=== PATIENT | male | born 1955 | race Caucasian/White ===

== ENCOUNTER → 2021-01-06 | Outpatient (CLI) | payer OTHER ==
[~2021-01-06] MED LIST: LEXAPRO20 MG PO; TOPROL XL100 MG PO; TOPROL XL50 MG PO
== END ==
LOC: LAB 08:49
PROVIDERS: ATTEND Neuromusculoskeletal Medicine & OMM
DX: R05 Cough (principal); M79.10 Myalgia, unspecified site; R53.83 Other fatigue; Z20.822 Contact with and (suspected) exposure to COVID-19

== ENCOUNTER 2021-01-07 12:59 | Inpatient (IN) | payer OTHER ==
[~2021-01-07] VITALS: Ht 188 cm; Wt 119.0 kg
[2021-01-07] VITALS (15 sets, daily range): BP systolic 88–155; BP diastolic 68–112
--- NOTE | ~2021-01-07 | HC ---
[facility] [place] [address] CONSULTATION Name: TIFFANY MONSON Room #: 246-P [facility] IN M.R.#: [id number] Admission: 01/07/21 Attend Phys: Jeremías Felix MD Discharge: Date of : 59 Report #: [id number] THIS REPORT FOR: cc: Jules Mckinney,Harjinder Sam MD ~ DATE OF SERVICE: 01/08/2021 CARDIOLOGY CONSULTATION REASON FOR CONSULTATION: Pulmonary embolus. HISTORY OF PRESENT ILLNESS: The patient is a 65-year-old who presents with worsening shortness of breath, chest pains and he noticed some decreased sats at home as well. Came to the Emergency Room and was found to have a submassive pulmonary embolus involving the right pulmonary artery. He was admitted and started on a heparin drip. He was seen by Interventional Cardiology and given his stability, no invasive treatments for his pulmonary embolus were required. Currently, the patient denies any chest pain. The patient reports that his shortness of breath is unchanged. He denies any PND or orthopnea. He denies presyncope or syncope. He does report that he has had some fevers and chills and was checked for COVID as an outpatient recently, but did not have the results back. His COVID test here in the hospital was negative. REVIEW OF SYSTEMS: A 12-point review of systems was performed and is negative other mentioned above. PAST MEDICAL HISTORY: SVT, depression. PAST SURGICAL HISTORY: Noncontributory. SOCIAL HISTORY: Does not smoke. MEDICATIONS: Metoprolol, Lexapro at home. PHYSICAL EXAMINATION: GENERAL: He is in no acute distress. HEENT: Oropharynx is clear. NECK: Supple, with no thyromegaly. CARDIOVASCULAR: Heart is regular rate and rhythm with no murmurs, rubs or gallops. CHEST: Lungs are clear to auscultation bilaterally. ABDOMEN: Soft, nontender, nondistended. EXTREMITIES: There is no clubbing, cyanosis or edema. NEUROLOGIC: Cranial nerves 2-12 are intact. [facility] [address] [place] [address] CONSULTATION Name: TIFFANY MONSON Room #: 246-P [facility] IN ..#: [id number] Admission: 01/07/21 Attend Phys: Jeremías Felix MD Discharge: Date of : 59 Report #: [id number] PSYCHIATRIC: He is appropriate. VITAL SIGNS: Temperature is 37.2, pulse 94, respirations 21, blood pressure 169/100, sats 94%. LABORATORY DATA: White count 6, hemoglobin 13, platelets 156. Chemistry: Sodium 137, potassium 4, creatinine 1.1. His initial troponin was negative. His proBNP is 718. COVID PCR is negative. CT scan was visualized. Chest x-ray shows an infiltrate in the right lung, likely related to his pulmonary embolus. EKG shows sinus tachycardia with no ischemic changes, and no RV strain pattern. An echocardiogram performed today shows an EF of 50-55%. There is some increased RV size, some mild decreased RV function. He has PA pressures in the 40s. His IVC appears to be collapsing. ASSESSMENT: Pulmonary embolus. PLAN: At this time, the patient appears to be hemodynamically stable with his pulmonary embolus. There appears to be mild RV enlargement and mild decreased RV function. PA pressures are in the 40s. At this time, recommend continuing with IV heparin and closely monitoring in the ICU hemodynamics sats. We will continue to follow. By: [id number] Harjinder Steve MD /nt
[2021-01-07 14:04] LABS: ABSOLUTE NEUTROPHILS 4.6 thou/uL (1.4-8.2); BASOPHILS 0.4 % (0.0-2.0); EOSINOPHILS 0.3 % (0.0-3.0); HEMATOCRIT 41.8 % (42.0-52.0); HEMOGLOBIN 14.2 gm/dL (14.0-18.0); LYMPHOCYTES 23.1 % (24.0-44.0); MCH 32.3 pg (26.0-34.0); MCV 95.1 fL (80.0-100.0); PLATELET COUNT 165 thou/uL (150-400); POLYS 65.2 % (36.0-66.0); RDW 12.2 % (10.5-14.5)
[2021-01-07 14:09] LABS: CALCIUM 8.7 mg/dL (8.5-10.1); CREATININE 1.1 mg/dL (0.7-1.3); POTASSIUM 4.3 mmol/L (3.5-5.1)
[2021-01-07 14:10] LABS: URINE BILIRUBIN NEGATIVE (Negative); URINE BLOOD NEGATIVE (Negative); URINE CLARITY CLEAR; URINE COLOR YELLOW; URINE GLUCOSE-RANDOM* NEGATIVE (Negative); URINE KETONES NEGATIVE (Negative); URINE LEUKOCYTES-REFLEX NEGATIVE (Negative); URINE NITRITE-REFLEX NEGATIVE (Negative); URINE PROTEIN (DIPSTICK) TRACE (Negative)
[2021-01-07 14:17] LABS: ALBUMIN 3.4 g/dL (3.4-5.0); TOTAL BILIRUBIN 0.6 mg/dL (0.2-1.0); TOTAL PROTEIN 7.5 g/dL (6.4-8.2)
[2021-01-07 14:29] LABS: APTT 27.4 Seconds (24.5-32.8); INR 1.1; PROTIME 11.6 Seconds (9.3-11.4)
[2021-01-07 14:30] LABS: D-DIMER 12.24 ug/mLFEU (0.19-0.50)
--- NOTE | 2021-01-07 18:33 | NUR ---
PT ARRIVED TO ICU AT 1755 ACCOMPANIED BY ED UTILITY LOCATE TECHNICIAN NIEKA. PT ALERT AND ORIENTED X4. PT ONLY C/O PAIN WITH DEEP INSPIRATION. PT ABLE TO TRANSFER SELF. PT WAS SETTLED IN BED. INITIAL VITAL SIGNS OBTAINED. PT SETTLED INTO BED AND ROOM ORIENTATION GIVEN. WILL CONTINUE TO MONITOR.
--- NOTE | 2021-01-07 22:11 | NUR ---
ASSESSMENT: PT ARRIVED FROM HOME TO THE UNIT AT APPROXIMATELY 1730. PT REMAIN ALERT AND ORIENT TIMES FOUR. SOLORZANO. CURRENTLY IS ON BEDREST R/T PE AND HEPARIN GTT INFUSING. C/O RIGHT UPPER BACK PAIN WITH INSPIRED DEEP BREATHS. ABLE TO REPOSITION SELF IN BED. LOW GRADE TEMP NOTED. DR. MONDRAGON AT THE BEDSIDE AT 2200 TO INFORM PT THAT THE PLAN FOR THOROCOTOMY HAS BEEN DISMISSED. PENDING PCR R/O COVID. PT'S BROTHER KEELY CALLED TO CHECK ON THE STATUS OF THE PT. PT SLIGHTLY RESTLESS BUT STATE THAT HE DOESN'T TAKE ANY THING FOR SLEEPING AND THAT HE LIKES LISTENING TO THE "WHITE NOISE". CURRENTLY, ST PER MONITOR. HR 111. WILL CONTINUE TO MONITOR.
[2021-01-08] VITALS (24 sets, daily range): BP systolic 109–176; BP diastolic 69–127
[2021-01-08 01:58] LABS: HEMATOCRIT 40.6 % (42.0-52.0); HEMOGLOBIN 13.6 gm/dL (14.0-18.0); MCH 31.7 pg (26.0-34.0); MCHC 33.5 g/dL (28.0-37.0); MCV 94.6 fL (80.0-100.0); RBC 4.29 mil/uL (4.50-6.00); RDW 11.7 % (10.5-14.5); WBC 6.6 thou/uL (4.0-11.0)
[2021-01-08 02:20] LABS: CALCIUM 8.1 mg/dL (8.5-10.1); CREATININE 1.1 mg/dL (0.7-1.3); MAGNESIUM 2.1 mg/dL (1.8-2.4)
--- NOTE | 2021-01-08 04:25 | NUR ---
LAB: PCR WAS NEGATIVE, PT OUT OF ISOLATION PER DR. FAIRBANKS.
--- NOTE | 2021-01-08 10:42 | 2DMMODE ---
[facility] [place] [address] 2 D/M-MODE ECHOCARDIOGRAM Name: TIFFANY MONSON Room #: 246-P ADM IN M.R.#: [id number] Admission: 01/07/21 Attend Phys: Jeremías Felix MD Discharge: Date of : 59 Report #: [id number] THIS REPORT FOR: cc: Jules Mckinney Steven F. DO Couchonnal, Luis F. MD ~ APPROVED REPORT Study performed: 01/08/2021 08:20:38 EXAM: Comprehensive 2D, Doppler, and color-flow Echocardiogram Patient Location: In-Patient Room #: 246 Status: stat BSA: 2.39 HR: 95 bpm Rhythm: NSR Indications Pulmonary Embolism Dyspnea 2D Dimensions RVDd: 33.67 mm IVSd: 11.86 (7-11mm) LVOT Diam: 27.39 (18-24mm) LVDd: 44.91 mm PWd: 10.24 (7-11mm) Ascending Ao: 34.64 (22-36mm) LVDs: 29.70 (25-40mm) Left Atrium: 32.97 (27-40mm) Aortic Root: 33.00 mm Volumes Left Atrial Volume (Systole) Single Plane 4CH: 25.19 mL Single Plane 2CH: 30.94 mL Aortic Valve AoV Peak Mikel.: 0.89 m/s AO Peak Gr.: 3.18 mmHg AO Mean Gr.: 1.64 mmHg AO V2 Mean: 0.59 m/s AO V2 VTI: 17.67 cm Mitral Valve [facility] [address] [place] [address] 2 D/M-MODE ECHOCARDIOGRAM Name: TIFFANY MONSON Room #: 246-P [facility] IN ..#: [id number] Admission: 01/07/21 Attend Phys: Jeremías Felix, Discharge: Date of : 59 Report #: [id number] MV E Max Mikel.: 0.45 m/s Pulmonary Valve PV Peak Mikel.: 0.80 m/s PV Peak Gr.: 2.53 mmHg Tricuspid Valve TR Peak Mikel.: 3.07 m/s TR Peak Gr.: 37.74 mmHg Left Ventricle The left ventricle is normal size. Borderline concentric left ventricular hypertrophy. The left ventricular systolic function is normal. The left ventricular ejection fraction is within the normal range. LVEF is 50-55%. Grade I - abnormal relaxation pattern. Right Ventricle Right ventricle is at the upper limits of normal. Right ventricular systolic function is mildly reduced. Atria The left atrium size is normal. The right atrium size is normal. Aortic Valve The aortic valve is normal in structure. No aortic regurgitation is present. There is no aortic valvular stenosis. Mitral Valve The mitral valve is normal in structure. There is no mitral valve regurgitation noted. Tricuspid Valve The tricuspid valve is normal in structure. Trace tricuspid regurgitation. Estimated PAP 40 mmHg. Pulmonic Valve The pulmonary valve is normal in structure. There is no pulmonic valvular regurgitation. Trace pulmonic regurgitation. Great Vessels The aortic root is normal in size. IVC is normal in size and collapses >50% with inspiration. Pericardium There is no pericardial effusion. [facility] [address] [place] [address] 2 D/M-MODE ECHOCARDIOGRAM Name: TIFFANY MONSON Room #: 246-P [facility] IN [facility].#: [id number] Admission: 01/07/21 Attend Phys: Jeremías Felix, Discharge: Date of : 59 Report #: [id number] <Conclusion> The left ventricle is normal size. Borderline concentric left ventricular hypertrophy. The left ventricular systolic function is normal. The left ventricular ejection fraction is within the normal range. LVEF is 50-55%. Right ventricle is at the upper limits of normal. Right ventricular systolic function is mildly reduced. The aortic valve is normal in structure. No aortic regurgitation is present. There is no aortic valvular stenosis. The mitral valve is normal in structure. There is no mitral valve regurgitation noted. The tricuspid valve is normal in structure. Trace tricuspid regurgitation. Estimated PAP 40 mmHg. IVC is normal in size and collapses >50% with inspiration. There is no pericardial effusion. <ELECTRONICALLY SIGNED> By: Harjinder Steve MD 01/08/211041 41 41 Harjinder Steve MD /INF
--- NOTE | 2021-01-08 18:27 | NUR ---
HEPARIN DRIP RUNNING AT 17U/KG/HOUR OR 19CC/HR. THERAPUTIC APTT OF 52.7 AT 1700. RECHECK IN AM. REQUIRES 2-3.5 L02 WHEN SLEEPING. SOME SOB WITH ACTIVITY.
[2021-01-09] VITALS (24 sets, daily range): BP systolic 112–154; BP diastolic 64–95
[2021-01-09 04:42] LABS: CALCIUM 8.6 mg/dL (8.5-10.1); MAGNESIUM 2.3 mg/dL (1.8-2.4); POTASSIUM 3.9 mmol/L (3.5-5.1)
[2021-01-09 05:08] LABS: HEMATOCRIT 39.7 % (42.0-52.0); HEMOGLOBIN 13.6 gm/dL (14.0-18.0); MCH 32.4 pg (26.0-34.0); MCHC 34.3 g/dL (28.0-37.0); MCV 94.7 fL (80.0-100.0); RBC 4.19 mil/uL (4.50-6.00); RDW 12.2 % (10.5-14.5); WBC 5.1 thou/uL (4.0-11.0)
[2021-01-09 07:13] LABS: APTT 47.5 Seconds (24.5-32.8); INR 1.1; PROTIME 11.8 Seconds (9.3-11.4)
--- NOTE | 2021-01-09 11:43 | EKG ---
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
--- NOTE | 2021-01-09 12:24 | NUR ---
ALERT AND ORIENTED AND VITALS STABLE. C/O RIGHT CHEST PAIN AND PRN TYLENOL ADMINISTERED. ON HEPARIN GTT PER PE PROTOCOL. ASSESSMENT COMPLETED. NO OTHER COMPLAINTS AT THIS TIME. WILL CONTINUE WITH POC.
--- NOTE | 2021-01-09 15:14 | NUR ---
chart review. hiral visited with taryn via phone call. intro to cm, and [place]. ellen & o x 3. 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 i have [employer] insurance the [employer] program it is really good"/taryn. he live in house alone, independent. manage own medication, pcp is dr robert. uses cpap that he bought online through [employer]. 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
--- NOTE | 2021-01-09 16:51 | NUR ---
US RESULTS CALLED TO DR. SAMUEL, NO NEW ORDERS RECEIVED.
[2021-01-09 19:35] LABS: HEMATOCRIT 39.9 % (42.0-52.0); HEMOGLOBIN 13.5 gm/dL (14.0-18.0); MCH 32.2 pg (26.0-34.0); MCHC 33.9 g/dL (28.0-37.0); RBC 4.19 mil/uL (4.50-6.00); RDW 12.2 % (10.5-14.5); WBC 5.6 thou/uL (4.0-11.0)
[2021-01-10] VITALS (9 sets, daily range): BP systolic 113–137; BP diastolic 70–83
[2021-01-10 02:47] LABS: HEMATOCRIT 40.6 % (42.0-52.0); HEMOGLOBIN 13.6 gm/dL (14.0-18.0); MCH 31.9 pg (26.0-34.0); MCHC 33.6 g/dL (28.0-37.0); RBC 4.27 mil/uL (4.50-6.00); RDW 11.6 % (10.5-14.5); WBC 4.9 thou/uL (4.0-11.0)
[2021-01-10 03:03] LABS: CALCIUM 8.4 mg/dL (8.5-10.1); CREATININE 1.1 mg/dL (0.7-1.3); MAGNESIUM 2.2 mg/dL (1.8-2.4); POTASSIUM 3.8 mmol/L (3.5-5.1)
--- NOTE | 2021-01-10 14:10 | NUR ---
bathed self, brushed teeth while sitting on the edge of bed, well tolerated. report given to STEFANIE Harmon. 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 (pt transferred from icu to ccu.) pt sitting in chair on ccu arrival, lunch tray warmed and given to pt.
--- NOTE | 2021-01-10 16:38 | NUR ---
cm notified by cm team that out of net work with insurance, cm team found 2 hospital in area in network and [facility]. cm spoke with karin and let her know was faxing over face sheet and possible need transfer in am per hospitalist. will cont following as needed for dc needs.
--- NOTE | 2021-01-10 18:27 | NUR ---
END OF SHIFT NOTE. PT PROGRESSING TOWARDS GOALS. 2L NASAL CANNUAL. OOB IN CHAIR. VSS. HEPARIN GTT THERAPEUTIC. PAIN RELIEVED WITH TYLENOL. DRY COOUGH.
[2021-01-10 19:29] LABS: HEMATOCRIT 41.4 % (42.0-52.0); HEMOGLOBIN 13.5 gm/dL (14.0-18.0); MCH 31.9 pg (26.0-34.0); MCHC 32.6 g/dL (28.0-37.0); MCV 97.9 fL (80.0-100.0); RBC 4.23 mil/uL (4.50-6.00); RDW 12.5 % (10.5-14.5); WBC 4.9 thou/uL (4.0-11.0)
[2021-01-11 03:42] LABS: HEMATOCRIT 40.5 % (42.0-52.0); HEMOGLOBIN 13.5 gm/dL (14.0-18.0); MCH 31.9 pg (26.0-34.0); MCHC 33.3 g/dL (28.0-37.0); MCV 95.7 fL (80.0-100.0); RBC 4.23 mil/uL (4.50-6.00); WBC 4.5 thou/uL (4.0-11.0)
[2021-01-11 03:43] LABS: CALCIUM 8.4 mg/dL (8.5-10.1); MAGNESIUM 2.3 mg/dL (1.8-2.4); POTASSIUM 3.7 mmol/L (3.5-5.1)
[2021-01-11 03:49] VITALS: BP 108/78
--- NOTE | 2021-01-11 05:11 | NUR ---
ASSUMED CARE OF THE PATIENT AT CHANGE OF SHIFT; AOX4/ UP AD JEMMA/STEADY GAIT; 2L NC WITH 02 SATS IN 90s; PATIENT STATES "I FEEL MUCH BETTER"... "DOESN'T HURT TO COUGH"; SR/ID ON THE MONITOR WITH HR 80-90s; PLAN IS FOR PATIENT TO SWITCH TO PO ANTICOAGULANT THERAPY PER CONSULT/ DC PLANNING LIKELY TODAY; WILL CONTINUE TO MONITOR AND FOLLOW POC.
[2021-01-11 07:40] VITALS: BP 131/80
[2021-01-11 12:01] VITALS: BP 126/76
--- NOTE | 2021-01-11 12:48 | NUR ---
PT. OFF NASAL CANNULA AT THIS TIME, ON ROOM AIR HIS OXYGEN SATURATIONS ARE 94% and DOING FINE WITHOUT ANY INTERVETION NOW. PLANING ON DISCHARGE FOR TODAY. IV ANTIBIOTOCS INFUSING TO LEFT AC NO ISSUES AND NO SIGN'S OF INFILTRATION AT SITE. PT. SAID HE "FEELS ALOT BETTER OVERALL NOW AND SUPER READY TO GO HOME". DENIES CP, DENIES SOB.
[2021-01-11] MEDS ORDERED: ELIQUIS5 MG PO ×2 (14:20→14:21)
--- NOTE | 2021-01-11 14:47 | NUR ---
LATE ENTRY FROM 01/10/21: INSURANCE INFO VERIFIED TODAY AND FOUND TO BE OON WITH NO OON BENEFITS. IN NETWORK HOSPTIALS ARE [facility] AND ON LICENSE OF [facility]. DISCUSSED CASE WITH DR. STEWART WHO INDICATES PT LIKELY READY FOR DC 01/11/21. CALLED AND SPOKE WITH PATIENT IN ROOM 211 AND LET HIM KNOW HIS INSURANCE IN OON WITH NO OON BENEFITS MEANING NO COVERAGE FOR HOSPITALIZATION AT [facility]. PROVIDED IN NETWORK OPTIONS FOR HIM AND ENCOURAGED HIM TO OBTAIN MEDICAL CARE AT [facility] OR ON LICENSE OF [facility] IN FUTURE ACCORDING TO HIS BENEFITS. PT VERBALIZED HE WAAS GOING HOME 01/11/21 AND DID NOT WANT TO TRANSFER TO ANOTHER HOSPTIAL. PT COMMUNICATED UNDERSTANDING HE HAS NO COVERAGE FOR HIS HOSPITALIZATION AT [facility] AND NEEDS TO UTILIZE IN NETWORK PROVIDERS. D DISCUSSED CASE WITH CM DIRECTOR. WILL PLAN OFR DC 01/11/21. EL
[2021-01-11 15:07] VITALS: BP 126/76
== END 2021-01-11 15:59 | disposition home or self-care (01) | DRG 175 ==
LOC: ER 12:59 → ICU 17:06 → EROBS 17:06 → 2N 17:06 → ICU 18:02 → 2N 01-10 14:11
PROVIDERS: Nurse Practitioner Family; Pediatrics; ADMIT Internal Medicine; ATTEND Internal Medicine
DX: I26.99 Other pulmonary embolism without acute cor pulmonale (principal); J96.01 Acute respiratory failure with hypoxia; J18.9 Pneumonia, unspecified organism; Z20.822 Contact with and (suspected) exposure to COVID-19; F32.9 Major depressive disorder, single episode, unspecified; F17.220 Nicotine dependence, chewing tobacco, uncomplicated; I10 Essential (primary) hypertension; E78.00 Pure hypercholesterolemia, unspecified; Z83.3 Family history of diabetes mellitus; Z82.49 Family history of ischemic heart disease and other diseases of the circulatory system; Z79.899 Other long term (current) drug therapy
CPT/HCPCS: 10078; 10081; 10203